=== PATIENT | male | born 1980 ===

== ENCOUNTER 2020-05-18 16:10 | Outpatient (REF) | payer SELFPAY ==
[2020-05-22 16:40] LABS: SARS-CoV-2 RNA Undetected (Undetected); SARS-CoV-2 Specimen Source Nasal
== END 2020-05-18 16:30 ==
LOC: NCHCN 16:10
PROVIDERS: PCP Family Medicine; Visit Provider Nurse Practitioner Family
DX: Z20.828 Contact with and (suspected) exposure to other viral communicable diseases (principal)
CPT/HCPCS: U0003

== ENCOUNTER 2023-02-07 16:13 | Outpatient (REF) | payer BC, SELFPAY ==
[2023-02-07 16:19] LABS: COVID-19 PCR Negative (Negative)
[2023-02-07 19:53] LABS: Source Nasal/Nares
== END 2023-02-07 16:14 | disposition home or self-care (01) ==
LOC: LBN 16:13
PROVIDERS: PCP Family Medicine; Visit Provider Nurse Practitioner Family
DX: J02.9 Acute pharyngitis, unspecified (principal)
CPT/HCPCS: 87635